=== PATIENT | male | born 1995 | race Caucasian/White ===

== ENCOUNTER 2019-05-07 19:45 | Emergency (ER) | payer SELFPAY ==
[~2019-05-07] VITALS: Wt 83.9 kg
[2019-05-07] MEDS ORDERED: ZITHROMAX250 MG PO (22:07)
[2019-05-07] MEDS ORDERED: PROAIR HFA8.5 GM INH (22:07)
[2019-05-07] MEDS ORDERED: MEDROL DOSEPAK4 MG PO (22:07)
[2019-05-08] MEDS ORDERED: NYST SUSP PO (00:59)
== END 2019-05-07 23:16 | disposition home or self-care (01) ==
LOC: ED 19:45
DX: J40 Bronchitis, not specified as acute or chronic (principal); H66.92 Otitis media, unspecified, left ear; K92.0 Hematemesis; Z88.1 Allergy status to other antibiotic agents; Z88.8 Allergy status to other drugs, medicaments and biological substances